=== PATIENT | female | born 1930 | race Caucasian/White ===

== ENCOUNTER 2018-09-02 14:41 | Emergency (ER) | payer MEDICARE, BC ==
[~2018-09-02] VITALS: Ht 149.9 cm; Wt 77.1 kg
[~2018-09-02 14:41] MED LIST: ACYCLOVIR 400400 MG PO; ASPIR 8181 MG PO; CELEXA20 MG PO; COZAAR 50 MG TA50 MG PO; FUROSEMIDE 20 M20 MG GT; LIPITOR40 MG PO; METFORMIN HCL500 MG PO; OMEPRAZOLE20 M2 PO; PREDNISONE 10 M10 MG PO; TOPROL XL100 MG
[2018-09-02] MEDS ORDERED: MYRBETRIQ25 MG PO (14:59)
[2018-09-02] MEDS ORDERED: CRESTOR5 MG PO (15:00)
[2018-09-02 17:07] VITALS: BP 158/62
== END 2018-09-02 17:07 | disposition home or self-care (01) ==
LOC: M.ERS 14:41
DX: S01.81XA Laceration without foreign body of other part of head, initial encounter (principal); I10 Essential (primary) hypertension; E78.5 Hyperlipidemia, unspecified; E11.9 Type 2 diabetes mellitus without complications; Z88.0 Allergy status to penicillin; W18.39XA Other fall on same level, initial encounter; Y93.89 Activity, other specified; Y92.098 Other place in other non-institutional residence as the place of occurrence of the external cause; Y99.8 Other external cause status

== ENCOUNTER → 2019-10-28 | Outpatient (CLI) | payer MEDICARE, BC, OTHER ==
[~2019-10-28] MED LIST changes: +CRESTOR5 MG PO; +MYRBETRIQ25 MG PO
== END ==
LOC: M.WC 08:52
DX: E11.622 Type 2 diabetes mellitus with other skin ulcer (principal); L89.312 Pressure ulcer of right buttock, stage 2; L89.322 Pressure ulcer of left buttock, stage 2; L98.411 Non-pressure chronic ulcer of buttock limited to breakdown of skin; E78.5 Hyperlipidemia, unspecified; I10 Essential (primary) hypertension

== ENCOUNTER → 2019-11-11 | Outpatient (CLI) | payer MEDICARE, BC, OTHER | LOC: M.WC 05:45 | DX: E11.622 Type 2 diabetes mellitus with other skin ulcer (principal); L89.312 Pressure ulcer of right buttock, stage 2; L89.322 Pressure ulcer of left buttock, stage 2; L98.411 Non-pressure chronic ulcer of buttock limited to breakdown of skin; E78.5 Hyperlipidemia, unspecified; I10 Essential (primary) hypertension ==

== ENCOUNTER 2020-01-07 14:55 | Emergency (ER) | payer MEDICARE, BC ==
[~2020-01-07] VITALS: Ht 144.8 cm; Wt 68.0 kg
[2020-01-07] MEDS ORDERED: OMEPRAZOLE 20 M20 M1 PO (15:07)
[2020-01-07] MEDS ORDERED: TOPROL XL50 MG PO (15:07)
[2020-01-07] MEDS ORDERED: CELEXA 20 MG TA20 MG PO (15:07)
[2020-01-07] MEDS ORDERED: ASPIR 8181 M1 PO (15:08)
[2020-01-07] MEDS ORDERED: NORCO 5-325 TA1 EAC1 PO (17:48)
[2020-01-07 18:29] VITALS: BP 151/75
== END 2020-01-07 18:31 | disposition home or self-care (01) ==
LOC: M.ERS 14:55
DX: S16.1XXA Strain of muscle, fascia and tendon at neck level, initial encounter (principal); S70.01XA Contusion of right hip, initial encounter; M25.511 Pain in right shoulder; M25.512 Pain in left shoulder; I10 Essential (primary) hypertension; E78.5 Hyperlipidemia, unspecified; E11.9 Type 2 diabetes mellitus without complications; Z88.0 Allergy status to penicillin; W18.39XA Other fall on same level, initial encounter; Y93.89 Activity, other specified; Y92.128 Other place in nursing home as the place of occurrence of the external cause; Y99.8 Other external cause status